=== PATIENT | male | born 1975 | race Caucasian/White ===

== ENCOUNTER → 2018-03-23 | Outpatient (CLI) | payer OTHER ==
[~2018-03-23] MED LIST: GUAI473L PO; LEV15R INH
--- NOTE | 2018-03-23 12:15 | RADIOLOGY IMAGING REPORT ---
[place]AC[place] [facility] [place] NAME: Ibrahima Sen : 1975 MR: [id number] V: [id number] EXAM DATE: ORDERING PHYSICIAN: DAVIAN JAQUEZ TECHNOLOGIST: Location: [facility] Patient: Ibrahima Sen : 1975 Visit/Account:[id number] Date of Sevice: 03/23/2018 2 VIEWS CHEST INDICATION: Fall, left-sided chest pain COMPARISON: There is a report of the chest from August 2010 FINDINGS: Heart size within normal limits. Lungs are clear without focal infiltrate or consolidation. No effusion or pneumothorax. No acute [place] finding. IMPRESSION: 1. No acute cardiopulmonary process. Report Dictated By: Irving Abdi MD at 03/23/2018 12:10 PM Report E-Signed By: Irving Abdi MD at 03/23/2018 12:11 PM WSN:[id number]
== END ==
LOC: RAD 11:28
PROVIDERS: ATTEND Physician Assistant Medical
DX: S20.212A Contusion of left front wall of thorax, initial encounter (principal); X58.XXXA Exposure to other specified factors, initial encounter
CPT/HCPCS: 71046